=== PATIENT | male | born 1950 | race Caucasian/White ===

== ENCOUNTER 2022-07-09 14:35 | Emergency (ER) | payer MEDICARE ==
[2022-07-09] MEDS ORDERED: LIPITOR40 M1 PO (14:49)
[2022-07-09] MEDS ORDERED: METOPROL TAR25 MG PO (14:49)
[2022-07-09] MEDS ORDERED: VALSARTAN80 MG (14:50)
[2022-07-09] MEDS ORDERED: ASPIRIN 81 LOW81 MG (14:50)
[2022-07-09] MEDS ORDERED: GLUCOSAMI11 PO (14:51)
[2022-07-09 15:10] LABS: BASO% 0.5 % (0-3); EOS% 2.2 % (0-8); HEMATOCRIT 36.9 % (39.0-50.0); HEMOGLOBIN 12.3 g/dl (14.0-18.0); IMMATURE GRANULOCYTES 0.2 % (0.0-5.0); LYMPH% 15.4 % (15-41); MEAN CELL VOLUME 94.4 fL CALC (80.0-100.0); MEAN CORPUSCULAR HGB 31.5 pG CALC (26.0-32.0); MEAN CORPUSCULAR HGB CONC 33.3 g/dL CAL (32.0-36.0); NEUT# 4.26 thou/uL (1.82-7.42); NEUT% 73.7 % (42-76); RED BLOOD COUNT 3.91 mill/uL (4.70-6.10); RED CELL DISTRI WIDTH 12.5 % (11.5-15.5)
[2022-07-09 15:13] LABS: URINE BILIRUBIN - DIPSTICK NEGATIVE (NEGATIVE); URINE BLOOD DIPSTICK NEGATIVE (NEGATIVE); URINE COLOR YELLOW; URINE GLUCOSE - DIPSTICK NEGATIVE (NEGATIVE); URINE KETONE TRACE mg/dL (NEGATIVE); URINE LEUK ESTERASE NEGATIVE (NEGATIVE); URINE NITRITE - DIPSTICK NEGATIVE (Negative); URINE PH 5.5 (4.5-8.0); URINE PROTEIN - DIPSTICK TRACE mg/dL (NEG-TRACE); URINE SPECIFIC GRAVITY >=1.030; URINE UROBILINOGEN - DIPSTICK 0.2 E.U./dL (0.2)
[2022-07-09 15:25] LABS: ALBUMIN 4.1 g/dL (3.2-5.0); ALKALINE PHOSPHATASE 69 u/l (38-126); ANION GAP 12 (6-22 (CALC)); BILIRUBIN, TOTAL 0.6 mg/dL (0.2-1.3); BUN 18 mg/dL (8-23); BUN/CREATININE RATIO 21 (12-20 (CALC)); CARBON DIOXIDE 21 mmol/l (22-30); CHLORIDE 103 mmol/l (95-108); CREATININE 0.9 mg/dL (0.7-1.3); GFR FOR AFR.AMER. > 60 ML/MIN (>=60 (CALC)); GFR OTHER RACES > 60 ML/MIN (>=60 (CALC)); SGOT/AST 34 u/l (19-48); SODIUM 132 mmol/l (137-146); TOTAL PROTEIN 6.7 g/dL (6.3-8.2)
[2022-07-09 18:40] VITALS: BP 112/63
== END 2022-07-09 18:43 | disposition left against medical advice (07) ==
LOC: ED 14:35
PROVIDERS: Family Medicine
DX: R55 Syncope and collapse (principal); I10 Essential (primary) hypertension; Z53.29 Procedure and treatment not carried out because of patient's decision for other reasons